=== PATIENT | female | born 2000 | race Caucasian/White ===

== ENCOUNTER 2019-08-04 21:08 | Emergency (ER) | payer OTHER ==
[~2019-08-04] VITALS: Ht 165.1 cm; Wt 77.1 kg
[2019-08-04 21:42] VITALS: BP 133/81
== END 2019-08-04 22:48 | disposition home or self-care (01) ==
LOC: ER 21:12
DX: R10.84 Generalized abdominal pain (principal); F41.9 Anxiety disorder, unspecified